=== PATIENT | male | born 1995 | race Caucasian/White ===

== ENCOUNTER 2023-06-13 09:08 | Emergency (ER) | payer OTHER ==
[~2023-06-13] VITALS: Ht 172.7 cm; Wt 66.7 kg
[2023-06-13 09:29] VITALS: BP 127/77; TEMP 98.4
[2023-06-13 10:19] LABS: APPEARANCE,URINE CLEAR (CLEAR); BILIRUBIN,URINE 1+ (NEGATIVE); BLOOD, URINE TRACE-INTA Ery/uL (NEGATIVE); COLOR,URINE YELLOW (YELLOW); KETONES,URINE NEGATIVE (NEGATIVE); LEUKOCYTE ESTERASE ,URINE NEGATIVE (NEGATIVE); NITRITE, URINE NEGATIVE (NEGATIVE); PROTEIN,URINE NEGATIVE (NEGATIVE); UGLUCOSE NEGATIVE (NEGATIVE); UROBILINOGEN,URINE 0.2 EU/dL (0.2)
[2023-06-13 10:25] LABS: ADD URINE CULTURE NO; BACTERIA,URINE Rare /HPF (None Seen); RBC,URINE 0-2 /HPF (0-2); SQUAMOUS EPITHELIAL CELL,UR Rare /HPF (None Seen); WBC,URINE 0-2 /HPF (0-3)
[2023-06-13 11:17] VITALS: O2SAT 100
== END 2023-06-13 11:18 | disposition home or self-care (01) ==
LOC: ER 09:08
DX: M54.30 Sciatica, unspecified side (principal); Z60.2 Problems related to living alone
CPT/HCPCS: 81001